=== PATIENT | female | born 1940 | race Caucasian/White ===

== ENCOUNTER → 2017-11-22 | Outpatient (CLI) | payer MEDICARE ==
[~2017-11-22] MED LIST: ACET325 PO; AMIO200 PO; AMLO5 PO; AZIT500 PO; CALC.25 PO; CARV25 PO; CHOL10002 PO; CODACE30 PO; DIGO.125 PO; DIGO.25 PO; ESCI10; FISH1000 PO; FURO40 PO; GEMF600 PO; GLIP10ER; HYDACE5 PO; INS70/30I; INS70/30PN SC; INSR10I SC; INSUASPI SC; INSULANI SC; INSULANPEN SC; Januvia50 MG PO; LEVSOD100 PO; LISI20 PO; LISI5 PO; MAGOXI400 PO; METO100ER; METO100ER PO; OXYB5 PO; PIOG45 PO; POTA10T PO; PRAV20 PO; Prinivil10 MG PO; RANI150 PO; ROSU10TA PO; Ranitidine HCl300 M1 PO; SPIR25 PO; TOLT4 PO; VALS80; WARF1 PO; WARF2.5 PO; WARF3 PO; WARF5 PO; XARELTO20 MG PO
== END | disposition home or self-care (01) ==
LOC: LAB SHORT 17:44 → LAB 17:44
DX: R21 Rash and other nonspecific skin eruption (principal)
CPT/HCPCS: 87070; 87205

== ENCOUNTER 2018-07-12 16:23 | Emergency (ER) | payer MEDICARE ==
[~2018-07-12] VITALS: Ht 157.5 cm; Wt 63.5 kg
[2018-07-12 16:42] LABS: BASOPHILS ABSOLUTE AUTO 0.03 K/mm3 (0.00-0.23); BASOPHILS PERCENT AUTO 0 % (0-2); EOSINOPHILS ABSOLUTE AUTO 0.16 K/mm3 (0.00-0.68); EOSINOPHILS PERCENT AUTO 2 % (0-6); Hemoglobin 15.3 g/dL (11.5-16.0); IMMATURE GRAN ABSOLUTE AUTO 0.02 K/mm3 (0.00-0.10); IMMATURE GRAN PERCENT AUTO 0 % (0-1); LYMPHOCYTES ABSOLUTE AUTO 2.39 K/mm3 (0.84-5.20); LYMPHOCYTES PERCENT AUTO 34 % (21-46); MONOCYTES ABSOLUTE AUTO 0.73 K/mm3 (0.16-1.47); MONOCYTES PERCENT AUTO 11 % (4-13); Mean Corpuscular HGB 30.4 pg (26.0-34.0); Mean Corpuscular HGB Conc 31.9 g/dL (31.5-36.5); Mean Corpuscular Volume 95 fL (80-100); Mean Platelet Volume 10.2 fL (9.1-12.4); NEUTROPHILS ABSOLUTE AUTO 3.64 K/mm3 (1.96-9.15); NEUTROPHILS PERCENT AUTO 52 % (41-73); Platelet Count 193 K/mm3 (150-400); RDW Coefficient Variation 15.7 % (11.7-14.2); RDW Standard Deviation 54.9 fL (35.1-46.3); Red Blood Cell Count 5.04 M/mm3 (3.80-5.20); White Blood Cell Count 6.97 K/mm3 (4.00-11.30)
[2018-07-12 16:45] LABS: Calcium, Ionized (POC) 1.08 mmol/L (1.10-1.46); Chloride (POC) 100 mmol/L (98-108); Creatinine (POC) 1.3 mg/dL (0.6-1.0); Glucose (ISTAT POC) 134 mg/dL (70-99); Potassium (POC) 3.9 mmol/L (3.5-5.5); Sodium (POC) 139 mmol/L (135-148); Total CO2 (POC) 27 mmol/L (21-32)
[2018-07-12 17:00] LABS: International Normalized Ratio 1.39; Prothrombin Time Results 14.1 Sec (9.7-11.5)
[2018-07-12 17:06] LABS: Albumin, Blood 3.7 g/dL (3.4-5.0); Albumin/Globulin Ratio 0.9 (0.8-1.8); Bilirubin, Total 0.6 mg/dL (0.1-1.0); Bun/Creatinine Ratio 17.3 (12.0-20.0); Calcium, Blood 8.8 mg/dL (8.5-10.1); Creatinine, Blood 1.33 mg/dL (0.40-1.00); Globulin, Blood 4.2 g/dL (2.2-4.0); Potassium, Blood 4.1 mmol/L (3.5-5.5); Total Protein, Blood 7.9 g/dL (6.4-8.2)
== END 2018-07-12 18:43 | disposition home or self-care (01) ==
LOC: ER 16:23
PROVIDERS: Emergency Medicine
DX: G45.9 Transient cerebral ischemic attack, unspecified (principal); E11.9 Type 2 diabetes mellitus without complications; I50.9 Heart failure, unspecified; I48.91 Unspecified atrial fibrillation; Z95.0 Presence of cardiac pacemaker; Z79.899 Other long term (current) drug therapy
CPT/HCPCS: 36415; 70450; 70496; 80047; 80053; 85014; 85025; 85610; 85730; 93005; 93010; 99285-25; J7030; Q9967

== ENCOUNTER 2018-09-15 18:47 | Observation (INO) | payer MEDICARE ==
[~2018-09-15] VITALS: Ht 165.1 cm; Wt 77.1 kg
[~2018-09-15 18:47] MED LIST changes: -FURO40 PO; -XARELTO20 MG PO
[2018-09-15 20:16] LABS: BASOPHILS ABSOLUTE AUTO 0.04 K/mm3 (0.00-0.23); BASOPHILS PERCENT AUTO 0 % (0-2); EOSINOPHILS ABSOLUTE AUTO 0.19 K/mm3 (0.00-0.68); EOSINOPHILS PERCENT AUTO 2 % (0-6); Hemoglobin 14.2 g/dL (11.5-16.0); IMMATURE GRAN ABSOLUTE AUTO 0.07 K/mm3 (0.00-0.10); IMMATURE GRAN PERCENT AUTO 1 % (0-1); LYMPHOCYTES ABSOLUTE AUTO 3.37 K/mm3 (0.84-5.20); LYMPHOCYTES PERCENT AUTO 36 % (21-46); MONOCYTES ABSOLUTE AUTO 0.83 K/mm3 (0.16-1.47); MONOCYTES PERCENT AUTO 9 % (4-13); Mean Corpuscular HGB 30.5 pg (26.0-34.0); Mean Corpuscular Volume 93 fL (80-100); Mean Platelet Volume 11.1 fL (9.1-12.4); NEUTROPHILS PERCENT AUTO 52 % (41-73); Platelet Count 208 K/mm3 (150-400); RDW Standard Deviation 51.4 fL (35.1-46.3); Red Blood Cell Count 4.65 M/mm3 (3.80-5.20)
[2018-09-15 20:24] LABS: Albumin, Blood 3.3 g/dL (3.4-5.0); Albumin/Globulin Ratio 0.7 (0.8-1.8); Bilirubin, Total 0.5 mg/dL (0.1-1.0); Calcium, Blood 8.9 mg/dL (8.5-10.1); Creatinine, Blood 0.96 mg/dL (0.40-1.00); Globulin, Blood 4.8 g/dL (2.2-4.0); Potassium, Blood 4.4 mmol/L (3.5-5.5); Total Protein, Blood 8.1 g/dL (6.4-8.2)
[2018-09-15 20:26] LABS: International Normalized Ratio 1.17; Prothrombin Time Results 12.2 Sec (9.7-11.5)
[2018-09-15] MEDS ORDERED: **INCOMPLETE MED REC (20:39)
[2018-09-15] MEDS ORDERED: FURO40 PO (21:02)
[2018-09-15] MEDS ORDERED: XARELTO20 MG PO (21:02)
--- NOTE | 2018-09-16 19:43 | NUR ---
SHIFT SUMMARY PATIENT A&O X4, SBA TO BATHROOM. DENIES NAY PAIN, NAUSEA, OR SOB THIS SHIFT. NEURO CHECKS Q4 HRS WNL. DENIES ANY N/T. HEMATOMA TO R SIDE OF HEAD, PURPLE IN COLOR. INCONTINENT AT TIMES. CALL APPROPRIATELY. FAMILY IS AT THE BEDSIDE. NO ACUTE CHANGES. BED ALARM ON.
--- NOTE | 2018-09-17 04:34 | NUR ---
SHIFT SUMMARY A/O, ABLE TO MAKE NEEDS KNOWN. COOPERATIVE WITH CARE. CALLS AND ANSWERS QUESTIONS APPROPRIATELY. NEURO CHECKS WNL. UP WITH 1 PA WITH A FWW AND GAIT BELT. STEADY GAIT NOTED. APPEARED TO REST INTERMITTENTLY THROUGHOUT THE NIGHT. VSS/AFEBRILE. BED IN LOWEST POSITION. CALL LIGHT AND BELONGINGS WITHIN REACH. WCTM. REPORT TO ONCOMING RN.
[2018-09-17] MEDS ORDERED: CARV25 PO (14:35)
[2018-09-17] MEDS ORDERED: LEVSOD75 PO (14:36)
[2018-09-17] MEDS ORDERED: SITA50T2 PO (14:37)
[2018-09-17] MEDS ORDERED: K-Dur20 MEQ PO (14:37)
[2018-09-17] MEDS ORDERED: ACET325 PO (14:37)
--- NOTE | 2018-09-17 17:12 | NUR ---
DISCAHRGE SUMMARY PATIENT A&O X4, SBA W/ FWW TO BATHROOM. CALLS APPROPRIATELY. NEURO CHECKS Q 4HRS, WNL. DENIES ANY PAIN OR NAUSEA THIS SHIFT. SOB WITH EXERTION. RESP E/U ON RA AT REST. RESTED MOST OF THE SHIFT. FAMILY AT THE BEDSIDE. DISCHARGE PACKET PROVIDED. ALL DISCHARGE INFORMATION REVIEWED WITH THE PATIENT AND FAMILY. PATIENT EDUCATION PROVIDED. IV D/C, WNL. PATIENT AND FAMILY QUESTIONS ANSWERED. MOLD HOISTER ESCORTED PATIENT PUT VIA WHEELCHAIR, ALL BELONGINGS IN HAND. FAMILY AT HER SIDE.
== END 2018-09-17 15:33 | disposition home or self-care (01) ==
LOC: ER 18:47 → ERHOLD 18:48 → MEDS 18:48 → ENPENDDIS 09-17 12:00 → MEDS 09-17 15:33
PROVIDERS: Emergency Medicine; ADMIT Family Medicine
DX: S06.6X1A Traumatic subarachnoid hemorrhage with loss of consciousness of 30 minutes or less, initial encounter (principal); S06.5X1A Traumatic subdural hemorrhage with loss of consciousness of 30 minutes or less, initial encounter; I12.9 Hypertensive chronic kidney disease with stage 1 through stage 4 chronic kidney disease, or unspecified chronic kidney disease; E11.22 Type 2 diabetes mellitus with diabetic chronic kidney disease; N18.3 Chronic kidney disease, stage 3 (moderate); I48.2 Chronic atrial fibrillation; I42.9 Cardiomyopathy, unspecified; I25.10 Atherosclerotic heart disease of native coronary artery without angina pectoris; E03.9 Hypothyroidism, unspecified; E78.5 Hyperlipidemia, unspecified; Z79.02 Long term (current) use of antithrombotics/antiplatelets; Z79.899 Other long term (current) drug therapy; Z79.01 Long term (current) use of anticoagulants; W22.8XXA Striking against or struck by other objects, initial encounter; Y92.480 Sidewalk as the place of occurrence of the external cause
CPT/HCPCS: 36415; 70450; 80053; 82947; 85025; 85610; 85730; 96374; 97116; 97162; 97530; 99285-25; G0378; J3010

== ENCOUNTER 2020-10-11 09:32 | Day surgery (SDC) | payer MEDICARE ==
[~2020-10-11] VITALS: Ht 157.5 cm; Wt 94.5 kg
[~2020-10-11 09:32] MED LIST changes: +**INCOMPLETE MED REC; +FURO40 PO; +K-Dur20 MEQ PO; +LEVSOD75 PO; +SITA50T2 PO; +VITAMIN D310 MC5 PO; +XARELTO20 MG PO
[2020-10-11] MEDS ORDERED: GLYBURIDE5 MG PO (10:02)
--- NOTE | 2020-10-11 14:33 | NUR ---
PT UP TO BATHROOM, DRESSED WITH ASSISTANCE. SALINE LOCK REMOVED WITH CATHETER INTACT. SURGICAL SITE TO LEFT UPPER CHEST WITHSWELLING OR TENDERNESS AT THIS TIME. AWAITING ARRIVAL OF NIECE FOR DISCHARGE.
--- NOTE | 2020-10-11 15:07 | NUR ---
DISCHARGE GONE OVER WITH PT, PT VERBALIZES UNDERSTANDING. PT TO PRIVATE VEHICLE PER W/C WITH ONE STAFF.
== END 2020-10-11 15:00 | disposition home or self-care (01) ==
LOC: MHTC NI → MHTC 09:32 → MHTC NI 09:32 → MHTC 09:34 → MHTC NI 15:00 → MHTC 15:00
PROC: 0JH609Z Insertion of Cardiac Resynchronization Defibrillator Pulse Generator into Chest Subcutaneous Tissue and Fascia, Open Approach (ICD-10-PCS; principal; 2020-10-11)
PROC: 0JPT0PZ Removal of Cardiac Rhythm Related Device from Trunk Subcutaneous Tissue and Fascia, Open Approach (ICD-10-PCS; principal; 2020-10-11)
DX: I25.5 Ischemic cardiomyopathy (principal); Z45.02 Encounter for adjustment and management of automatic implantable cardiac defibrillator; I13.0 Hypertensive heart and chronic kidney disease with heart failure and stage 1 through stage 4 chronic kidney disease, or unspecified chronic kidney disease; I50.22 Chronic systolic (congestive) heart failure; N18.9 Chronic kidney disease, unspecified; E11.22 Type 2 diabetes mellitus with diabetic chronic kidney disease; I42.8 Other cardiomyopathies; I48.19 Other persistent atrial fibrillation; E03.9 Hypothyroidism, unspecified; E66.9 Obesity, unspecified; F32.9 Major depressive disorder, single episode, unspecified; K21.9 Gastro-esophageal reflux disease without esophagitis; J30.9 Allergic rhinitis, unspecified; I25.2 Old myocardial infarction; Z79.899 Other long term (current) drug therapy
CPT/HCPCS: 33264; 76937; 93296; 99152; 99153; C1781; C1882; J0690; J1644; J2250; J3010; J7030; J7040

== ENCOUNTER 2020-11-07 21:09 | Emergency (ER) | payer MEDICARE ==
[~2020-11-07] VITALS: Ht 157.5 cm; Wt 72.6 kg
[~2020-11-07 21:09] MED LIST changes: +GLYBURIDE5 MG PO
[2020-11-07 21:47] LABS: BASOPHILS ABSOLUTE AUTO 0.03 K/mm3 (0.00-0.23); BASOPHILS PERCENT AUTO 0 % (0-2); EOSINOPHILS PERCENT AUTO 1 % (0-6); Hematocrit 39.4 % (33.0-51.0); Hemoglobin 13.5 g/dL (11.5-16.0); IMMATURE GRAN ABSOLUTE AUTO 0.04 K/mm3 (0.00-0.10); IMMATURE GRAN PERCENT AUTO 1 % (0-1); LYMPHOCYTES ABSOLUTE AUTO 2.34 K/mm3 (0.84-5.20); LYMPHOCYTES PERCENT AUTO 32 % (21-46); MONOCYTES ABSOLUTE AUTO 0.87 K/mm3 (0.16-1.47); MONOCYTES PERCENT AUTO 12 % (4-13); Mean Corpuscular HGB 31.5 pg (26.0-34.0); Mean Corpuscular HGB Conc 34.3 g/dL (31.5-36.5); Mean Corpuscular Volume 92 fL (80-100); Mean Platelet Volume 11.3 fL (9.1-12.4); NEUTROPHILS ABSOLUTE AUTO 3.87 K/mm3 (1.96-9.15); NEUTROPHILS PERCENT AUTO 53 % (41-73); Platelet Count 207 K/mm3 (150-400); RDW Coefficient Variation 12.6 % (11.7-14.2); RDW Standard Deviation 42.5 fL (35.1-46.3); Red Blood Cell Count 4.28 M/mm3 (3.80-5.20); White Blood Cell Count 7.25 K/mm3 (4.00-11.30)
[2020-11-07 21:59] LABS: Albumin, Blood 3.2 g/dL (3.4-5.0); Albumin/Globulin Ratio 0.7 (0.8-1.8); Bilirubin, Total 0.4 mg/dL (0.1-1.0); Bun/Creatinine Ratio 21.3 (12.0-20.0); Calcium, Blood 12.2 mg/dL (8.5-10.1); Creatinine, Blood 1.5 mg/dL (0.40-1.00); Globulin, Blood 4.6 g/dL (2.2-4.0); Potassium, Blood 3.9 mmol/L (3.5-5.5); Total Protein, Blood 7.8 g/dL (6.4-8.2)
[2020-11-07] MEDS ORDERED: GEMF600 PO (22:34)
[2020-11-07] MEDS ORDERED: HYDR1TAB94 PO (22:34)
[2020-11-07 22:40] LABS: Source, Urine Catheter
[2020-11-07 22:45] LABS: Appearance, Urine Hazy (Clear); Bilirubin, Urine Neg (Neg); Blood, Urine 1+ (Neg); Color, Urine Yellow (P-Yellow); Glucose Qualitative, Urine Neg (Neg); Ketones, Urine Neg (Neg); Leukocyte Esterase, Urine 3+ (Neg); Nitrite, Urine Pos (Neg); Protein, Urine Neg (Neg); Urobilinogen, Urine NORM (Normal)
[2020-11-07 23:12] LABS: Bacteria Many /hpf; Red Blood Cells, Urine 0-2 /hpf (0-2); Squamous Epithelial Cells Rare /hpf (Few); White Blood Cells, Urine TNTC /hpf (0-5)
[2020-11-07] MEDS ORDERED: CEFP200 PO (23:23)
== END 2020-11-08 00:11 | disposition home or self-care (01) ==
LOC: ER 21:09
PROVIDERS: Emergency Medicine
DX: N39.0 Urinary tract infection, site not specified (principal); N18.9 Chronic kidney disease, unspecified; E11.9 Type 2 diabetes mellitus without complications; I48.91 Unspecified atrial fibrillation; Z79.01 Long term (current) use of anticoagulants; Z79.899 Other long term (current) drug therapy
CPT/HCPCS: 36415; 51701; 80053; 81001; 85025; 87077; 87086; 87186; 93005; 93010; 96365-59; 99284-25; J0696; J7030